=== PATIENT | female | born 1955 | race African-American/Black ===

== ENCOUNTER → 2016-06-04 | Outpatient (CLI) | payer OTHER ==
[2016-01-25 17:25] VITALS: BP 144/89
--- NOTE | 2016-06-04 13:27 | MG ---
HISTORY: SCREENING Comparison: 12/03/2014, 11/28/2013, 11/11/2012z FINDINGS: Bilateral CC and MLO projections of the right and left breast were obtained. Scattered fibroglandul ar tissue is seen to be present. There is a developing asymmetry seen in the superior left breast o n the MLO view, not well appreciated on the CC view for which further evaluation is recommended. No clustered microcalcifications or architectural distortion is identified. No skin thickening or nipp le retraction is appreciated. No pathological lymphadenopathy can be identified. IMPRESSION: Developing asymmetry is seen in the superior left breast. Further evaluation with spot- compression view and possibly targeted ultrasound is recommended. ACR CATEGORY 0: Assessment incomplete; additional imaging is needed. FOLLOW-UP EXAM 1 YEAR. Diagnostic CAD was utilized and reviewed. * 0 (ZERO) - ASSESSMENT INCOMPLETE; ADDITIONAL IMAGING IS NEEDED. * 1/1 (ONE) - NEGATIVE. * 2/II (TWO) - BENIGN FINDINGS. * 3/III (THREE) - PROBABLY BENIGN FINDING; SHORT INTERVAL FOLLOW-UP SUGGESTED. * 4/IV (FOUR) - SUSPICIOUS ABNORMALITY; BIOPSY SHOULD BE CONSIDERED. * 5/V - HIGHLY SUSPICIOUS OF MALIGNANCY; BIOPSY SHOULD BE PERFORMED. A NEGATIVE X-RAY REPORT SHOULD NOT DELAY BIOPSY IF A DOMINANT OR CLINICALLY SUSPICIOUS MASS IS PRESENT; 4 TO 8 PERCENT OF CANCERS ARE NOT IDENTIFIED BY X-RAY. A NEG ATIVE REPORT MAY REINFORCE THE CLINICAL IMPRESSION. ADENOSIS AND DENSE BREASTS MAY OBSCURE AN UNDER LYING NEOPLASM. Reported By:
== END ==
LOC: RAD 08:38
PROVIDERS: ATTEND Nurse Practitioner Family
DX: Z12.31 Encounter for screening mammogram for malignant neoplasm of breast (principal)
CPT/HCPCS: 77067

== ENCOUNTER → 2016-07-28 | Outpatient (CLI) | payer OTHER ==
[2016-01-25 17:25] VITALS: BP 144/89
--- NOTE | 2016-07-28 15:38 | US ---
Examination: Unilateral left diagnostic mammogram and left breast ultrasound. Clinical history: Abnormal screening mammogram. Technique: Additional digital images of the left breast were obtained. Targeted left breast ultrasou nd was also obtained evaluating the superior portion of the left breast. Comparison: 06/04/2016. Findings: The left breast is heterogeneously dense, reducing the sensitivity of mammography. A suspected asymmetry in the superior portion of the left breast in the middle depth, seen on the ML O view only of the recent screening mammogram, is not persistent on additional views and was probabl y due to summation artifact. Findings are stable when compared with the older mammograms dated 12/03 and 11/28/2013. Targeted left breast ultrasound evaluating the superior portion of the left breast reveals no sonogr aphic abnormality. No suspicious cystic or solid mass is noted. Impression: 1. No mammographic or sonographic evidence of malignancy. BI-RADS category 1-negative. Recommend routine annual screening mammogram. Diagnostic CAD was utilized and reviewed. * 0 (ZERO) - ASSESSMENT INCOMPLETE; ADDITIONAL IMAGING IS NEEDED. * 0C - ASSESSMENT INCOMPLETE, NEEDS ADDITIONAL IMAGING EVALUATION AND/OR PRIOR MAMMOGRAMS FOR COMPAR GERRI. * 1/1 (ONE) - NEGATIVE. * 2/II (TWO) - BENIGN FINDINGS. * 3/III (THREE) - PROBABLY BENIGN FINDING; SHORT INTERVAL FOLLOW-UP SUGGESTED. * 4/IV (FOUR) - SUSPICIOUS ABNORMALITY; BIOPSY SHOULD BE CONSIDERED. * 5/V - HIGHLY SUSPICIOUS OF MALIGNANCY; BIOPSY SHOULD BE PERFORMED. * 6/IV - KNOWN BIOPSY PROVEN MALIGNANCY-APPROPRIATE ACTION SHOULD BE TAKEN. A NEGATIVE X-RAY REPORT SHOULD NOT DELAY BIOPSY IF A DOMINANT OR CLINICALLY SUSPICIOUS MASS IS PRESENT; 4 TO 8 PERCENT OF CANCERS ARE NOT IDENTIFIED BY X-RAY. A NEGATIVE REPORT MAY REINFORCE THE CLINICAL IMPRESSION. ADENOSIS AND DENSE BREASTS MAY OBSCURE AN UNDERLYING NEOPLASM. Reported By:
== END ==
LOC: RAD 12:49
PROVIDERS: ATTEND Nurse Practitioner Family
DX: R92.2 Inconclusive mammogram (principal)
CPT/HCPCS: 76642; 77065